=== PATIENT | male | born 1960 | race Two or more races ===

== ENCOUNTER 2019-06-03 12:00 | Inpatient (IN) | payer MEDICAID ==
[~2019-06-03] VITALS: Ht 170.2 cm; Wt 78.0 kg
[2019-06-03] MEDS ORDERED: SODIUM CHLORIDE 0.9% 1000ML BAG (SEPSIS BOLUS) IV ONE (13:00)
[2019-06-03] MEDS ORDERED: PIPERONYL/PYRETHRINS (RID)120 ML SHAMPOO TOP SCH (13:03)
[2019-06-03 15:00] LABS: CLARITY URINE CLEAR (CLEAR); COLOR URINE YELLOW (YELLOW); KETONES URINE NEGATIVE (NEGATIVE); LEUKOCYTE ESTERASE URINE NEGATIVE (NEGATIVE); NITRITE URINE NEGATIVE (NEGATIVE); OCCULT BLOOD URINE NEGATIVE (NEGATIVE); PH URINE 5.5 (4.5-8.0); PROTEIN URINE NEGATIVE (NEGATIVE); SPECIFIC GRAVITY URINE 1.008 (1.005-1.030); UROBILINOGEN URINE 0.2 E.U./dL (0.2-1.0)
[2019-06-03 15:12] LABS: *AMPHETAMINES SCREEN URINE NEGATIVE (NEGATIVE); *BARBITURATES SCREEN URINE NEGATIVE (NEGATIVE); *BENZODIAZEPINES SCREEN URINE NEGATIVE (NEGATIVE); *COCAINE SCREEN URINE NEGATIVE (NEGATIVE); METHADONE URINE SCREEN NEGATIVE (NEGATIVE); OPIATES URINE SCREEN NEGATIVE (NEGATIVE)
[2019-06-03 15:13] LABS: CANNABINOID URINE SCREEN NEGATIVE (NEGATIVE); PHENCYCLIDINE URINE SCREEN NEGATIVE (NEGATIVE)
[2019-06-03 15:46] LABS: BASOPHILS % 1.2 % (0.0-2.0); CHLORIDE 110 mEq/L (98-107); EOSINOPHILS % 0.9 % (0.0-5.0); HEMOGLOBIN. 10.6 g/dL (14.0-18.0); LYMPHOCYTES % 19.5 % (20.0-50.0); MEAN CORPUSCULAR HEMOGLOBIN 30.3 pg (28.0-32.0); MEAN CORPUSCULAR VOLUME 91.6 fL (80.0-94.0); MEAN PLATELET VOLUME 6.6 fl (7.4-10.4); MONOCYTES % 9.8 % (2.0-8.0); NEUTROPHILS % 68.6 % (40.0-76.0); PLATELET 291 x1000/uL (130-400); RED CELL DISTRIBUTION WIDTH 19.3 % (11.6-14.6)
[2019-06-03 15:50] LABS: ETHANOL BLOOD 263 mg/dL
[2019-06-03] MEDS ORDERED: PIPERACILLIN/TAZ 3.375G PREMIX 50 ML IV ONE (16:30)
[2019-06-03] MEDS ORDERED: VANCOMYCIN 1 G PREMIX 200 ML IV SCH (16:30)
[2019-06-03] MEDS ORDERED: OSELTAMIVIR 75MG CAPSULE PO ONE (16:30)
[2019-06-03] MEDS ORDERED: GUAIFENESIN 200MG/10ML SUGAR FREE UDC PO PRN (19:30)
[2019-06-03] MEDS ORDERED: LORAZEPAM 2MG/ML CPJ IV PRN (19:30)
[2019-06-03] MEDS ORDERED: ZOLPIDEM TARTRATE 5MG TABLET PO PRN (19:30)
[2019-06-03] MEDS ORDERED: LEVOFLOXACIN 500MG PREMIX 100 ML IV SCH (19:30)
[2019-06-03] MEDS ORDERED: ONDANSETRON HCL 4MG/2ML INJ IV PRN (19:30)
[2019-06-03] MEDS ORDERED: DEXTROSE 50% WATER 50ML SYRINGE IV PRN (19:30)
[2019-06-03] MEDS ORDERED: MAGNESIUM/ALUMINUM HYDROXIDE/SIMETHICONE 30ML UDC PO PRN (19:30)
[2019-06-03] MEDS ORDERED: DIPHENHYDRAMINE 50MG/ML VIAL IV PRN (19:30)
[2019-06-03] MEDS ORDERED: CLONIDINE 0.1MG TABLET PO PRN (19:30)
[2019-06-03] MEDS ORDERED: ACETAMINOPHEN 325MG TABLET PO PRN ×2 (19:30)
[2019-06-03] MEDS ORDERED: LEVETIRACETAM 500MG PREMIX 100 ML IV ONE (20:30)
[2019-06-03 22:11] VITALS: BP 158/86
[2019-06-03 22:30] VITALS: BP 158/86
[2019-06-03] MEDS: BLOOD SUGAR DIAGNOSTIC STRIP TEST SCH (23:00)
[2019-06-03] MEDS ORDERED: POTASSIUM CHLORIDE 20MEQ/PACKET PO NR (23:00)
[2019-06-03] MEDS: INSULIN LISPRO 100 UNITS/ML SUBCUT SCH (23:00)
[2019-06-03] MEDS ORDERED: PHEN100C4 PO (23:44)
[2019-06-03] MEDS ORDERED: COR6 PO (23:44)
[2019-06-03] MEDS ORDERED: ATOR-2 PO (23:44)
[2019-06-03] MEDS ORDERED: CLOP75TA4 PO (23:44)
[2019-06-03] MEDS ORDERED: ASPI-1497 PO (23:45)
[2019-06-03] MEDS ORDERED: AMLO5TAB88 PO (23:45)
[2019-06-04] VITALS: BP 166/92
[2019-06-04] MEDS ORDERED: MVI, ADULT NO.1 10 ML, FOLIC ACID 1 MG, THIAMINE HCL 100 MG in SODIUM CHLORIDE 0.9% 1,0... IV NR ×4
[2019-06-04] MEDS: LEVETIRACETAM 500MG PREMIX 100 ML IV SCH ×3 (00:18→22:52)
[2019-06-04] MEDS: ENOXAPARIN 40MG/0.4ML SYR SUBCUT SCH ×2 (00:41→20:37)
[2019-06-04 04:00] VITALS: BP 147/98
[2019-06-04 06:08] LABS: CHLORIDE 112 mEq/L (98-107)
[2019-06-04 06:17] LABS: BASOPHILS % 1.8 % (0.0-2.0); EOSINOPHILS % 1.7 % (0.0-5.0); HEMATOCRIT. 29.3 % (42.0-52.0); HEMOGLOBIN. 9.9 g/dL (14.0-18.0); LYMPHOCYTES % 19.6 % (20.0-50.0); MEAN CORPUSCULAR HEMOGLOBIN 30.7 pg (28.0-32.0); MEAN CORPUSCULAR VOLUME 91.1 fL (80.0-94.0); MONOCYTES % 12.7 % (2.0-8.0); NEUTROPHILS % 64.2 % (40.0-76.0); PLATELET 259 x1000/uL (130-400); RED BLOOD CELL COUNT 3.21 mill/uL (4.7-6.1); RED CELL DISTRIBUTION WIDTH 18.8 % (11.6-14.6)
[2019-06-04] MEDS: INSULIN LISPRO 100 UNITS/ML SUBCUT SCH ×4 (06:35→20:42)
[2019-06-04] MEDS: BLOOD SUGAR DIAGNOSTIC STRIP TEST SCH ×4 (06:35→20:42)
[2019-06-04 08:00] VITALS: BP 144/99
[2019-06-04] MEDS: DEXT 5%/0.45% NACL KCL 40MEQ/L 1,000 ML IV SCH ×2 (08:52→22:50)
[2019-06-04 12:00] VITALS: BP 147/92
[2019-06-04 16:00] VITALS: BP 143/86
[2019-06-04 20:00] VITALS: BP 143/95
[2019-06-04] MEDS: CHLORDIAZEPOXIDE 25MG CAPSULE PO SCH (22:50)
[2019-06-05] VITALS (7 sets, daily range): BP systolic 108–149; BP diastolic 57–91
[2019-06-05] MEDS: CHLORDIAZEPOXIDE 25MG CAPSULE PO SCH ×2 (05:08→20:31)
[2019-06-05] MEDS: BLOOD SUGAR DIAGNOSTIC STRIP TEST SCH ×2 (05:34→12:56)
[2019-06-05] MEDS: INSULIN LISPRO 100 UNITS/ML SUBCUT SCH ×2 (07:50→12:50)
[2019-06-05] MEDS: THIAMINE HCL 100MG TABLET PO SCH (09:14)
[2019-06-05] MEDS: LEVETIRACETAM 500MG PREMIX 100 ML IV SCH (09:14)
[2019-06-05] MEDS: DEXT 5%/0.45% NACL KCL 40MEQ/L 1,000 ML IV SCH (12:58)
[2019-06-05] MEDS: CLOTRIMAZOLE 1% CREAM 30GM TOP SCH (13:00)
[2019-06-05] MEDS: AMLODIPINE 5MG TABLET PO SCH (15:15)
[2019-06-05] MEDS: LEVETIRACETAM 500MG TABLET PO SCH (20:31)
[2019-06-05] MEDS: ENOXAPARIN 40MG/0.4ML SYR SUBCUT SCH (20:36)
[2019-06-06 04:00] VITALS: BP 111/74
[2019-06-06 08:00] VITALS: BP 122/69
[2019-06-06] MEDS: CLOTRIMAZOLE 1% CREAM 30GM TOP SCH (09:00)
[2019-06-06] MEDS: THIAMINE HCL 100MG TABLET PO SCH (09:11)
[2019-06-06] MEDS: CHLORDIAZEPOXIDE 25MG CAPSULE PO SCH (09:11)
[2019-06-06] MEDS: AMLODIPINE 5MG TABLET PO SCH (09:11)
[2019-06-06] MEDS: LEVETIRACETAM 500MG TABLET PO SCH (09:11)
[2019-06-06] MEDS ORDERED: KEPP500 MT (15:30)
[2019-06-06 16:00] VITALS: BP 107/61
[2019-06-06 16:25] VITALS: BP 110/69
== END 2019-06-06 18:35 | disposition home or self-care (01) | DRG 775 ==
LOC: ER 12:00 → 7EST 16:30 → CANRESERV 19:59 → ENRESERV 19:59 → 7WST 06-04 19:18 → 6WST 06-04 23:31
PROVIDERS: ADMIT Internal Medicine; ATTEND Internal Medicine
PROC: 0HDNXZZ Extraction of Left Foot Skin, External Approach (ICD-10-PCS; principal; 2019-06-05)
DX: F10.129 Alcohol abuse with intoxication, unspecified (principal); G31.2 Degeneration of nervous system due to alcohol; E46 Unspecified protein-calorie malnutrition; I50.9 Heart failure, unspecified; I11.0 Hypertensive heart disease with heart failure; G62.1 Alcoholic polyneuropathy; B35.3 Tinea pedis; D64.9 Anemia, unspecified; D72.810 Lymphocytopenia; E87.6 Hypokalemia; D72.821 Monocytosis (symptomatic); R74.0 Nonspecific elevation of levels of transaminase and lactic acid dehydrogenase [LDH]; L57.0 Actinic keratosis; E88.9 Metabolic disorder, unspecified; F17.210 Nicotine dependence, cigarettes, uncomplicated; E11.9 Type 2 diabetes mellitus without complications; Y90.8 Blood alcohol level of 240 mg/100 ml or more; G40.909 Epilepsy, unspecified, not intractable, without status epilepticus; Z86.73 Personal history of transient ischemic attack (TIA), and cerebral infarction without residual deficits; Z59.0 Homelessness; Z91.14 Patient's other noncompliance with medication regimen; Z68.26 Body mass index [BMI] 26.0-26.9, adult; Z71.6 Tobacco abuse counseling; I25.2 Old myocardial infarction; Z03.818 Encounter for observation for suspected exposure to other biological agents ruled out
CPT/HCPCS: 36415; 71045; 80048; 80053; 80305; 80320; 81003; 82962; 83036; 83605; 83735; 84100; 84145; 84484; 85025; 87420; 87635; 87804; 93005; 99291; J1650; J1953; J2543; J3370; J3411; J3490; J7030; G0480